=== PATIENT | female | born 1950 | race Asian ===

== ENCOUNTER 2022-08-12 15:03 | Emergency (ER) | payer MEDICARE, OTHER ==
[~2022-08-12] VITALS: Ht 149.9 cm; Wt 54.5 kg
[2022-08-12] MEDS ORDERED: ATOR40TA28 PO (15:04)
[2022-08-12] MEDS ORDERED: PERTUSS(ACELL),DIPH,TET VAC/PF 0.5 ML SYRINGE IM. ONE (19:45)
[2022-08-12] MEDS ORDERED: LIDOCAINE 1% 10 ML VIAL PERC ONE (19:45)
[2022-08-12] MEDS ORDERED: CEPH-558 PO (20:17)
[2022-08-12] MEDS ORDERED: ACET-3385 PO (20:19)
[2022-08-12 21:00] VITALS: BP 132/65
[2022-08-12] MEDS ORDERED: BACI28OI9 TP (21:08)
[2022-08-12] MEDS ORDERED: BACITRACIN 0.9 GM PACKET OINTMENT TP ONE (21:15)
== END 2022-08-12 21:34 | disposition home or self-care (01) ==
LOC: EMS 15:05
DX: S61.214A Laceration without foreign body of right ring finger without damage to nail, initial encounter (principal); E78.00 Pure hypercholesterolemia, unspecified; X58.XXXA Exposure to other specified factors, initial encounter; Y93.89 Activity, other specified; Y92.89 Other specified places as the place of occurrence of the external cause; Y99.8 Other external cause status
CPT/HCPCS: 99284; 73130; 90715; 90471; 12001; 96372; J0690; J3490